=== PATIENT | female | born 1980 | race Two or more races ===

== ENCOUNTER 2023-02-25 09:01 | Emergency (ER) | payer OTHER ==
[~2023-02-25] VITALS: Ht 172.7 cm; Wt 88.5 kg
== END 2023-02-25 14:42 | disposition home or self-care (01) ==
LOC: ER 09:02
DX: M62.830 Muscle spasm of back (principal); Z88.8 Allergy status to other drugs, medicaments and biological substances

== ENCOUNTER 2025-01-25 00:18 | Emergency (ER) | payer OTHER ==
[~2025-01-25] VITALS: Ht 170.2 cm; Wt 90.7 kg
[2025-01-25] MEDS ORDERED: KETOROLAC TROMETHAMINE 60 MG VIAL IM STA (01:43)
[2025-01-25] MEDS ORDERED: CEFAZOLIN SODIUM 1,000 MG VIAL IM STA (01:43)
[2025-01-25] MEDS ORDERED: DEXAMETHASONE SODIUM PHOSPHATE 4 MG/ML VIAL IM STA (01:44)
[2025-01-25] MEDS ORDERED: ALBUTEROL SULFATE 3 ML/2.5 MG AMPUL.NEB IH STA (01:44)
[2025-01-25] MEDS ORDERED: DEXAMETHASONE SODIUM PHOSPHATE 4 MG/ML VIAL ONE (03:00)
[2025-01-25] MEDS ORDERED: CEFAZOLIN SODIUM 1,000 MG VIAL ONE (03:00)
[2025-01-25] MEDS ORDERED: KETOROLAC TROMETHAMINE 60 MG VIAL IM ONE (03:00)
[2025-01-25] MEDS ORDERED: ALBUTEROL SULFATE 3 ML/2.5 MG AMPUL.NEB IH ONE (03:43)
[2025-01-25 04:17] LABS: URINE APPEARANCE Clear; URINE BILIRRUBIN Negative (NEGATIVE); URINE BLOOD Negative; URINE COLOR Yellow; URINE GLUCOSE Negative (NEGATIVE); URINE KETONE Negative (NEGATIVE); URINE LEUKOCYTE Negative; URINE NITRATE Negative; URINE PROTEIN Negative (NEGATIVE); URINE UROBILINOGEN 0.2 E.U./dl
[2025-01-25 04:21] LABS: URINE EPITHELIAL CELLS 13.0 uL (0.0-38.8); URINE RBC 5.2 uL (0.0-20.8); URINE WBC 16.7 uL (0.0-23.2)
[2025-01-25 04:28] LABS: URINE CAST 0.56 uL (0.0-1.40)
[2025-01-25 04:37] LABS: BASO % 0.4 % (0.1-1.2); EOS # 0.14 (0.04-0.54); EOS % 2.6 % (0.7-7.0); LYMPH # 0.94 (1.18-3.74); LYMPH % 17.6 % (19.3-53.1); MEAN PLATELET VOLUME 10.30 fl (9.4-12.4); MONO # 0.68 (0.24-0.82); MONO % 12.7 % (4.7-12.5); NEUT # 3.55 (1.56-6.13); NEUT % 66.5 % (34.0-71.1); RED CELL DISTRIBUTION WIDTH 13.0 % (11.6-14.4)
[2025-01-25 04:45] LABS: BUN CREA RATIO 16.0 (7.0-25.0); CREATININE SERUM 0.93 mg/dL (0.55-1.02); GFR 65.49; GLUCOSE FASTING 102.0 mg/dL (65-100); OSMOLALITY SERUM 282.0 MOSM/KG (275-295)
[2025-01-25 05:02] LABS: COVID-19 AG NEGATIVE (NEGATIVE)
== END 2025-01-25 05:47 | disposition home or self-care (01) ==
LOC: ER 00:18
PROVIDERS: General Practice
DX: J20.8 Acute bronchitis due to other specified organisms (principal); Z20.822 Contact with and (suspected) exposure to COVID-19; Z88.8 Allergy status to other drugs, medicaments and biological substances